=== PATIENT | female | born 1990 | race American Indian/Alaskan Native ===

== ENCOUNTER 2019-02-04 10:15 | Emergency (ER) | payer MEDICAID | END 2019-02-04 10:30 | disposition left against medical advice (07) | LOC: ED 10:15 | DX: M21.069 Valgus deformity, not elsewhere classified, unspecified knee (principal); Z53.21 Procedure and treatment not carried out due to patient leaving prior to being seen by health care provider ==

== ENCOUNTER 2019-09-04 12:07 | Emergency (ER) | payer SELFPAY ==
[2019-09-04] MEDS ORDERED: ONDANSETRON 4 MG/2 ML INJ IV ONE (13:18)
[2019-09-04] MEDS ORDERED: ACETAMINOPHEN 325 MG/10.15 ML ORAL LIQD UNIT DOSE PO ONE (13:18)
[2019-09-04 13:20] VITALS: BP 130/72
--- NOTE | 2019-09-04 13:20 | Emergency Department Report ---
Chief Complaint: Sore Throat Stated Complaint: HEADACHE/SORE THROAT - HPI History of Present Illness: 28 y/o female who is follows with my lobby concierge complains of 1) sore throat, cough n/v 2) body aches 3) vaginal discharge 4) lack of movement sensation + lymphadenopathy s1 s2 rrr lungs clear abd soft gcs 15 no stridor labs ua rapid strep flud us ob treat symptoms, reassess ok for fast trACK Vital Signs 09/04/19 13:19 Temperature 98.4 F Pulse Rate 79 Respiratory 20 Rate Blood Pressure 130/72 O2 Sat by Pulse 99 Oximetry MSE screening note: Focused history and physical exam performed. Due to findings the following was ordered: ED Disposition for MSE Condition: Stable
[2019-09-04] MEDS ORDERED: D5W/0.45% NACL 1,000 ML IV SCH (14:00)
--- NOTE | 2019-09-04 14:25 | Ultrasound Report ---
OB Ultrasound HISTORY: lack of movement. TECHNIQUE: Grayscale and color Doppler imaging performed. COMPARISON: No recent ultrasound is available for comparison FINDINGS: Transabdominal and endovaginal imaging was performed. Uterus measures 12.0 x 6.8 x 7.0 cm and contains an intrauterine gestation with crown-rump length of 5.4 cm corresponding with an EGA of 12 weeks and 0 days. Estimated delivery date is 03/17/2020. A smal l yolk sac is also present. Heart rate is 166 bpm. Ovaries are both normal in appearance with probable functional cyst on the right measuring 1.7 cm. Tr chetan pelvic free fluid is present. There is a small curvilinear hypodensity adjacent to the fetus measuring 2.3 x 0.9 cm likely represen ting a subchorionic hemorrhage. IMPRESSION: 1. Single viable intrauterine gestation as above. 2. Small subchorionic hemorrhage. 3. Small likely functional right ovarian cyst. Signer Name: Morgan Burleson MD Signed: 09/04/2019 2:20 PM Workstation Name: [id number]
[2019-09-04 14:56] LABS: Bilirubin,Urine NEG (Negative); Blood,Urine SM (Negative); Color,Urine Yellow (Yellow); Protein,Urine <15 mg/dL mg/dL (Negative); Urobilinogen,Urine < 2.0 mg/dL (<2.0)
[2019-09-04 15:04] LABS: Hematocrit 35.1 % (30.3-42.9); Hemoglobin 11.4 gm/dl (10.1-14.3); Mean Corpuscular HGB Conc 33 % (30-34); Mean Corpuscular Volume 79 fl (79-97); Platelet Count 240 K/mm3 (140-440); Red Blood Count 4.45 M/mm3 (3.65-5.03); Red Cell Distribution Width 15.3 % (13.2-15.2)
[2019-09-04 15:12] LABS: Bacteria,Urine 1+ /HPF (Negative); Mucus,Urine 1+ /HPF
[2019-09-04 15:25] LABS: Alanine Aminotransferase 11 units/L (7-56); Albumin 3.8 g/dL (3.9-5); BUN/Creatinine Ratio 8; Blood Urea Nitrogen 4 mg/dL (7-17); Calcium 9.4 mg/dL (8.4-10.2); Hemolysis Index 0
[2019-09-04] MEDS ORDERED: ONDANSETRON 4 MG/2 ML INJ ONE (16:18)
--- NOTE | 2019-09-04 17:50 | Emergency Department Report ---
ED General Adult HPI - General Chief complaint: Sore Throat Stated complaint: HEADACHE/SORE THROAT Time Seen by Provider: 09/04/19 16:10 Source: patient Mode of arrival: Wheelchair Limitations: No Limitations - History of Present Illness Initial comments: Patient is a 28-year-old female presents emergency room with complaints of a sore throat that began this morning. She states initially it felt like the throat was tight but then began to get sore. she states she also has nasal congestion. She states that she also has lower abdominal pain. She has associated nausea and vomiting and white vaginal discharge. She states that she has not been able tolerate by mouth intake. She denies any vaginal bleeding, vaginal itching, vaginal lesions, diarrhea, fever, urinary symptoms, productive cough, CP, SOB. She states she is currently 13 weeks . She states that she has been taking Zofran for her nausea which did help but she ran out. Laron es any known sick contacts. 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 She denies any past medical history. She states she has an allergy to penicillin. She states her last menstrual cycle was June 09. /A1. - Related Data Previous Rx's Medication Instructions Recorded Last Taken Type Ibuprofen [Motrin 600 MG tab] 600 mg PO Q6HR #60 tablet 03/24/15 Unknown Rx Vit-Fe Fumar-FA [ 1 each PO QDAY #30 tablet 03/24/15 Unknown Rx Vitamin] Nitrofurantoin Edmons[place]/M-Cryst 100 mg PO BID 5 Days #10 capsule 09/04/19 Unknown Rx [Macrobid CAP] Ondansetron [Zofran Odt] 4 mg PO Q8HR PRN #14 tab.rapdis 09/04/19 Unknown Rx metroNIDAZOLE [Flagyl] 500 mg PO BID 7 Days #14 tab 09/04/19 Unknown Rx Allergies Allergy/AdvReac Type Severity Reaction Status Date / Time Penicillins AdvReac Severe Swelling Verified 09/04/19 13:24 ED Review of Systems ROS: Stated complaint: HEADACHE/SORE THROAT Other details as noted in HPI Comment: All other systems reviewed and negative ED Past Medical Hx - Past Medical History Hx Hypertension: No Hx Congestive Heart Failure: No Hx Diabetes: No Hx Deep Vein Thrombosis: No Hx Renal Disease: No Hx Sickle Cell Disease: No Hx Headaches / Migraines: Yes Hx Seizures: No Hx Asthma: No Hx COPD: No Hx HIV: No - Social History Smoking Status: Never Smoker Substance Use Type: None - Medications Home Medications: Home Medications Medication Instructions Recorded Confirmed Last Taken Type Ibuprofen [Motrin 600 MG tab] 600 mg PO Q6HR #60 tablet 03/24/15 Unknown Rx Vit-Fe Fumar-FA [ 1 each PO QDAY #30 tablet 03/24/15 Unknown Rx Vitamin] Nitrofurantoin Edmonson/M-Cryst 100 mg PO BID 5 Days #10 capsule 09/04/19 Unknown Rx [Macrobid CAP] Ondansetron [Zofran Odt] 4 mg PO Q8HR PRN #14 tab.rapdis 09/04/19 Unknown Rx metroNIDAZOLE [Flagyl] 500 mg PO BID 7 Days #14 tab 09/04/19 Unknown Rx ED Physical Exam - General Limitations: No Limitations General appearance: alert, in no apparent distress - Head Head exam: Present: atraumatic, normocephalic - Eye Eye exam: Present: normal appearance - ENT ENT exam: Present: normal orophraynx, mucous membranes moist, TM's normal bi laterally, normal external ear exam, other (airway intact, no uvular edema, no uvular deviation, uvula is midline, no tonsillar hypertrophy or exudates) - Respiratory Respiratory exam: Present: normal lung sounds bilaterally. Absent: respiratory distress, wheezes, rales, rhonchi, stridor, chest wall tenderness, accessory muscle use, decreased breath sounds, prolonged expiratory - Cardiovascular Cardiovascular Exam: Present: regular rate, normal rhythm, normal heart sounds. Absent: systolic murmur, diastolic murmur, rubs, gallop - GI/Abdominal GI/Abdominal exam: Present: soft, normal bowel sounds. Absent: distended, tenderness, guarding, rebound, rigid - External exam: Present: normal external exam. Absent: erythema, swelling, l esions, lacerations, ecchymosis, bleeding Speculum exam: Present: vaginal discharge, cervical discharge, other (cervical os is closed, no bleeding, radiator core tester: Jackie Phelps, EMT). Absent: vaginal bleeding, foreign body, tissue, laceration Bi-manual exam: Present: normal bi-manual exam. Absent: cervical motion tendernes, adnexal tenderness, adnexal mass - Neurological Exam Neurological exam: Present: alert, oriented X3 - Psychiatric Psychiatric exam: Present: normal affect, normal mood - Skin Skin exam: Present: warm, dry, intact ED Course Vital Signs 09/04/19 09/04/19 13:19 18:30 Temperature 98.4 F Pulse Rate 79 Respiratory 20 18 Rate Blood Pressure 130/72 O2 Sat by Pulse 99 Oximetry ED Medical Decision Making - Lab Data Result diagrams: 09/04/19 14:48 09/04/19 14:48 Lab Results 09/04/19 09/04/19 09/04/19 Range/Units 13:18 14:29 14:48 WBC 7.9 (4.5-11.0) K/mm3 RBC 4.45 (3.65-5.03) M/mm3 Hgb 11.4 (10.1-14.3) gm/dl Hct 35.1 (30.3-42.9) % MCV 79 (79-97) fl MCH 26 L (28-32) pg MCHC 33 (30-34) % RDW 15.3 H (13.2-15.2) % Plt Count 240 (140-440) K/mm3 Sodium (137-145) mmol/L Potassium (3.6-5.0) mmol/L Chloride (98-107) mmol/L Carbon Dioxide (22-30) mmol/L Anion Gap mmol/L BUN (7-17) mg/dL Creatinine (0.7-1.2) mg/dL Estimated GFR ml/min BUN/Creatinine Ratio % Glucose (65-100) mg/dL Calcium (8.4-10.2) mg/dL Magnesium (1.7-2.3) mg/dL Total Bilirubin (0.1-1.2) mg/dL AST (5-40) units/L ALT (7-56) units/L Alkaline Phosphatase (35-129) units/L Total Creatine Kinase (30-135) units/L Total Protein (6.3-8.2) g/dL Albumin (3.9-5) g/dL Albumin/Globulin Ratio % Urine Color Yellow (Yellow) Urine Turbidity Slightly-cloudy (Clear) Urine pH 6.0 (5.0-7.0) Ur Specific [place] 1.013 (1.003-1.030) Urine Protein <15 mg/dl (Negative) mg/dL Urine Glucose (UA) Neg (Negative) mg/dL Urine Ketones Neg (Negative) mg/dL Urine Blood Sm (Negative) Urine Nitrite Neg (Negative) Urine Bilirubin Neg (Negative) Urine Urobilinogen < 2.0 (<2.0) mg/dL Ur Leukocyte Esterase Lg (Negative) Urine WBC (Auto) 16.0 H (0.0-6.0) /HPF Urine RBC (Auto) 8.0 (0.0-6.0) /HPF U Epithel Cells (Auto) 19.0 H (0-13.0) /HPF Urine Bacteria (Auto) 1+ (Negative) /HPF Urine Mucus 1+ /HPF Influenza A (Rapid) Negative (Negative) Influenza B (Rapid) Negative (Negative) Group A Strep Rapid Negative (Negative) Blood Type Antibody Screen 09/04/19 09/04/19 Range/Units 14:48 14:52 WBC (4.5-11.0) K/mm3 RBC (3.65-5.03) M/mm3 Hgb (10.1-14.3) gm/dl Hct (30.3-42.9) % MCV (79-97) fl MCH (28-32) pg MCHC (30-34) % RDW (13.2-15.2) % Plt Count (140-440) K/mm3 Sodium 135 L (137-145) mmol/L Potassium 3.9 (3.6-5.0) mmol/L Chloride 102.0 (98-107) mmol/L Carbon Dioxide 22 (22-30) mmol/L Anion Gap 15 mmol/L BUN 4 L (7-17) mg/dL Creatinine 0.5 L (0.7-1.2) mg/dL Estimated GFR > 60 ml/min BUN/Creatinine Ratio 8 % Glucose 86 (65-100) mg/dL Calcium 9.4 (8.4-10.2) mg/dL Magnesium 1.90 (1.7-2.3) mg/dL Total Bilirubin < 0.20 (0.1-1.2) mg/dL AST 13 (5-40) units/L ALT 11 (7-56) units/L Alkaline Phosphatase 48 (35-129) units/L Total Creatine Kinase 77 (30-135) units/L Total Protein 7.3 (6.3-8.2) g/dL Albumin 3.8 L (3.9-5) g/dL Albumin/Globulin Ratio 1.1 % Urine Color (Yellow) Urine Turbidity (Clear) Urine pH (5.0-7.0) Ur Specific [place] (1.003-1.030) Urine Protein (Negative) mg/dL Urine Glucose (UA) (Negative) mg/dL Urine Ketones (Negative) mg/dL Urine Blood (Negative) Urine Nitrite (Negative) Urine Bilirubin (Negative) Urine Urobilinogen (<2.0) mg/dL Ur Leukocyte Esterase (Negative) Urine WBC (Auto) (0.0-6.0) /HPF Urine RBC (Auto) (0.0-6.0) /HPF U Epithel Cells (Auto) (0-13.0) /HPF Urine Bacteria (Auto) (Negative) /HPF Urine Mucus /HPF Influenza A (Rapid) (Negative) Influenza B (Rapid) (Negative) Group A Strep Rapid (Negative) Blood Type O POSITIVE Antibody Screen Negative - Radiology Data Radiology results: report reviewed OB Ultrasound HISTORY: lack of movement. TECHNIQUE: Grayscale and color Doppler imaging performed. COMPARISON: No recent ultrasound is available for comparison FINDINGS: Transabdominal and endovaginal imaging was performed. Uterus measures 12.0 x 6.8 x 7.0 cm and contains an intrauterine gestation with crown-rump length of 5.4 cm corresponding with an EGA of 12 weeks and 0 days. Estimated delivery date is 03/17/2020. A small yolk sac is also present. Heart rate is 166 bpm. Ovaries are both normal in appearance with probable functional cyst on the right measuring 1.7 cm. Trace pelvic free fluid is present. There is a small curvilinear hypodensity adjacent to the fetus measuring 2.3 x 0.9 cm likely representing a subchorionic hemorrhage. IMPRESSION: 1. Single viable intrauterine gestation as above. 2. Small subchorionic hemorrhage. 3. Small likely functional right ovarian cyst. Signer Name: Morgan Burleson MD Signed: 09/04/2019 2:20 PM Workstation Name: [id number] Transcribed By: RADHA Dictated By: Morgan Burleson MD Electronically Authenticated By: Morgan Burleson MD Signed Date/Time: 09/04/19 1420 DD/ 1417 TD/TT: - Medical Decision Making Patient is a 28-year-old female presents emergency room with complaints of a sore throat that began this morning. She states initially it felt like the throat was tight but then began to get sore. she states she also has nasal congestion. She states that she also has lower abdominal pain. She has associated nausea and vomiting and white vaginal discharge. She states that she has not been able tolerate by mouth intake. She denies any vaginal bleeding, vaginal itching, vaginal lesions, diarrhea, fever, urinary symptoms, productive cough, CP, SOB. She states she is currently 13 weeks . She states that she has been taking Zofran for her nausea which did help but she ran out. Denies any known sick contacts. 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 She denies any past medical history. She states she has an allergy to penicillin. She states her last menstrual cycle was June 09. /A1. VSS. on exam: airway intact, no uvular edema, no uvular deviation, uvula is midline, no tonsillar hypertrophy or exudates, breath sounds are clear bilaterally without w/r/r, pelvic exam radiator core tester: Jackie Phelps, EMT, white vaginal/cervical discharge, cervical os is closed, no bleeding, no CMT, no adnexal tenderness or masses, no abd TTP. labs are stable. pt is Rh positive. rapid strep is negative. rapid flu is negative. UA shows bacteria and leukocyte esterase, large amount of epithelial cells, could be related to contamination, but given bacteria and will tx pt for UTI with abx. wet prep shows BV. G/C swab sent. US OB: 1. Single viable intrauterine gestation as above. 2. Small subchorionic hemorrhage. 3. Small likely functional right ovarian cyst. discussed all results with pt. pt states she is aware of ovarian cyst and subchorionic hemorrhage and states it is being monitored by her OB. pt given zofran and tylenol and her symptoms improved. she had no episodes of N/V while in the ED. she was able to tolerate PO intake. pt given prescription for flagyl, macrobid, and zofran. advised pt to Take medication as prescribed. Increase your fluid intake over the next several days. Please go to medical records in one week for results of your tests to see if you need further treatment. may take zyrtec or benadryl for your cold symptoms for 5-7 days. follow up with your DYE HOUSE WORKER in the next 2-3 days. Return to the emergency room for any new or worsening symptoms. - Differential Diagnosis strep, influenza, sinusitis, viral, IUP, UTI, subchorionic hemorrhage, cyst Critical care attestation.: If time is entered above; I have spent that time in minutes in the direct care of this critically ill patient, excluding procedure time. ED Disposition Clinical Impression: UTI (lower urinary tract infection), Bacterial vaginosis Abdominal pain in Qualifiers: Trimester: first trimester Qualified Code(s): O26.891 - Other specified related conditions, first trimester Ovarian cyst Qualifiers: Laterality: right Qualified Code(s): N83.201 - Unspecified ovarian cyst, right side Nausea and vomiting Qualifiers: Vomiting type: unspecified Vomiting Intractability: non-intractable Qualified Code(s): R11.2 - Nausea with vomiting, unspecified URI (upper respiratory infection) Qualifiers: URI type: unspecified URI Qualified Code(s): J06.9 - Acute upper respiratory infection, unspecified Subchorionic hemorrhage Qualifiers: Fetus number: single or unspecified fetus Trimester: first trimester Qualified Code(s): O41.8X10 - Other specified disorders of amniotic fluid and membranes, first trimester, not applicable or unspecified Disposition: DC-01 TO HOME OR SELFCARE Is pt being admited?: No Does the pt Need Aspirin: No Condition: Stable Instructions: Bacterial Vaginosis (ED), Urinary Tract Infection in Women (ED), Upper Respiratory Infection (ED), Abdominal Pain in (ED) Additional Instructions: Take medication as prescribed. Increase your fluid intake over the next several days. Please go to medical records in one week for results of your tests to see if you need further treatment. may take zyrtec or benadryl for your cold symptoms for 5-7 days. follow up with your DYE HOUSE WORKER in the next 2-3 days. Return to the emergency room for any new or worsening symptoms. Prescriptions: metroNIDAZOLE [Flagyl] 500 mg PO BID 7 Days #14 tab Nitrofurantoin Edmons[place]/M-Cryst [Macrobid CAP] 100 mg PO BID 5 Days #10 capsule Ondansetron [Zofran Odt] 4 mg PO Q8HR PRN #14 tab.rapdis PRN Reason: Nausea And Vomiting Referrals: [facility] [Provider Group] - 2-3 Days Forms: Accompanied Note, STI Treatment and Prevention, Work/School Release Form Time of Disposition: 18:12 Print Language: SPANISH
[2019-09-04] MEDS ORDERED: ACETAMINOPHEN 325 MG TAB ONE (18:27)
== END 2019-09-04 18:53 | disposition home or self-care (01) ==
LOC: ED 12:07
DX: O23.591 Infection of other part of genital tract in pregnancy, first trimester (principal); O23.41 Unspecified infection of urinary tract in pregnancy, first trimester; O34.81 Maternal care for other abnormalities of pelvic organs, first trimester; O41.8X10 Other specified disorders of amniotic fluid and membranes, first trimester, not applicable or unspecified; N83.201 Unspecified ovarian cyst, right side; B96.89 Other specified bacterial agents as the cause of diseases classified elsewhere; Z88.0 Allergy status to penicillin; Z3A.13 13 weeks gestation of pregnancy
CPT/HCPCS: 36415; 76801; 76817; 80053; 81001; 82550; 83735; 85027; 86850; 86900; 86901; 87086; 87116; 87210; 87400; 87430; 87591; 96374; 99285; J2405